=== PATIENT | female | born 1960 | race Caucasian/White ===

== ENCOUNTER 2016-12-26 09:49 | Inpatient (IN) | payer OTHER ==
--- NOTE | ~2016-12-26 | HP ---
History And Physical [address] [place]. [address] NAME: TESSIE PALOMINO : 64 STATUS : ADM Kate PAT#: [id number] AGE: 56 ADM/REG DATE : 12/26/16 MR#: [id number] REPORT SERV DATE: 12/26/16 DICTATED BY: MALACHI DUCKWORTH III DATE: 12/26/16 REPORT STATUS : Draft TRANSCRIBED BY: EDDIE DATE: 12/26/16 DATE OF ADMISSION: 12/26/2016 CHIEF COMPLAINT: Left knee pain. 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 She felt immediate pain and swelling and was brought to the emergency room here at [facility] where x-rays revealed a displaced comminuted left patellar fracture, and she is admitted for open reduction and internal fixation of her left patella fracture. Risks, benefits, and expected outcomes have been explained, including migration of hardware, persistent pain, and arthritis with loss of motion. PAST MEDICAL HISTORY: Negative for high blood pressure, diabetes, liver, lung, or kidney problems. ALLERGIES: CODEINE. MEDICATIONS: Please see the MAR. PHYSICAL EXAMINATION: GENERAL: She is alert and oriented x3. VITAL SIGNS: Stable. HEENT: Normocephalic, atraumatic. Pupils are equal, round, and reactive to light and accommodation. Extraocular muscles are intact. NECK: Supple. CHEST: Clear. HEART: Regular rate and rhythm. ABDOMEN: Benign, soft, nontender. Positive bowel sounds. ORTHOPEDIC: Examination reveals marked tenderness to the left knee. She has a large hemarthrosis of her left patella with palpable fragments superior and inferior. She has no opening with varus or valgus stress. Limited range of motion secondary to pain and guarding. IMAGING: X-rays reveal a comminuted transverse left patella fracture displaced. PLAN: Admission for open reduction and internal fixation of her left patella fracture. TB/EDDIE Malachi Duckworth III, M.D. / [id number] [facility] [address] [address] NAME: TESSIE PALMOINO : 64 STATUS : ADM Kate PAT#: [id number] AGE: 56 ADM/REG DATE : 12/26/16 MR#: [id number] REPORT SERV DATE: 12/26/16 DICTATED BY: MALACHI DUCKWORTH III DATE: 12/26/16 REPORT STATUS : Draft TRANSCRIBED BY: MODL DATE: 12/26/16 CC: Elfego Stern III, M.D.
--- NOTE | ~2016-12-26 | OP ---
Record Of Operation [facility] [address] [place]. [address] NAME: TESSIE PALOMINO : 64 STATUS : ADM Kate PAT#: [id number] AGE: 56 ADM/REG DATE : 12/26/16 MR#: [id number] REPORT SERV DATE: 12/26/16 DICTATED BY: MALACHI DUCKWORTH III DATE: 12/26/16 REPORT STATUS : Draft TRANSCRIBED BY: MODL DATE: 12/26/16 DATE OF PROCEDURE: 12/26/2016 PREOPERATIVE DIAGNOSIS: A transverse left patella fracture, inferior third hole. POSTOPERATIVE DIAGNOSIS: A transverse left patella fracture, inferior third hole. SURGICAL PROCEDURE PERFORMED: 1. Open reduction and internal fixation of left patella fracture with [id number] K- wire fixation. 2. Repair of medial and lateral retinaculum, left knee. SURGEON: Malachi Duckworth M.D. FIRST ASSISTANCE: Tamia Drummond NP. ANESTHESIA: General. ANTIBIOTICS: Ancef 2 g. COMPLICATIONS: None. TOURNIQUET TIME: 39 minutes. CRYSTALLOID: 1000 mL. ESTIMATED BLOOD LOSS: 20 mL. DRAINS: None. PROCEDURE IN DETAIL: The patient was brought to the operative room, placed on the table in supine position and general anesthesia was induced. A 2 g Ancef was administered intravenously in the preop holding area. In the operating room, pneumatic tourniquet was applied to the left upper thigh. Left lower extremity was prepped and draped in the usual sterile fashion. It was exsanguinated with a 6-inch Esmarch. Tourniquet was inflated to 350 mmHg. Assuring good anesthesia, a standard midline incision was made directly over the left knee from the inferior pole of the patella to the superior pole. Abundant blood was encountered. The fractured patella was encountered. A hemarthrosis was drained from the knee joint. The medial and lateral retinaculum were torn. The inferior pole had two small fragments, one mostly articular cartilage on the lateral side and one small osteochondral fragment on the medial side. All soft tissue was removed from the fracture site. The fracture site was reduced with large retinaculum. Two 2.0 K-wires were placed across the fracture from the superior pole to the inferior pole, exiting the patella tendon. An 18- gauge gyhhvm-qs-gusob wire was then wrapped around the K-wires and tightened on the superior medial side. The excess wire was cut. The ends of the pins were bent downward away from the skin and cut with a pin cutter. The articular surface appeared anatomic while palpating Record Of Operation [facility] [address] [place]. [address] NAME: TESSIE PALOMINO : 64 STATUS : ADM Kate PAT#: [id number] AGE: 56 ADM/REG DATE : 12/26/16 MR#: [id number] REPORT SERV DATE: 12/26/16 DICTATED BY: MALACHI DUCKWORTH III DATE: 12/26/16 REPORT STATUS : Draft TRANSCRIBED BY: MODL DATE: 12/26/16 it through the torn medial retinaculum. C-arm image was used to confirm nice alignment at the fracture. The medial retinaculum was repaired with interrupted [id number] #1 Vicryl suture. The lateral retinaculum was repaired in a similar fashion with #1 interrupted Vicryl suture. The thorough irrigation was carried out and subcutaneous tissue was closed with 2-0 Vicryl. A 20 mL of 0.5% Marcaine solution was injected into the knee for postoperative pain control. The skin was closed with a running 4-0 Monocryl. Benzoin and Steri-Strips were applied, followed by an Aquacel dressing. Tourniquet was released after 39 minutes. The patient tolerated the procedure well, brought to recovery room in satisfactory condition. There were no intraoperative, postoperative, or anesthetic complications. All instrument, needle, sponge, and lap counts were correct. ESTHER/EDDIE Malachi Duckworth III, M.D. / [id number] CC: Elfego Stern III, M.D.
[2016-12-26] MEDS ORDERED: PRIN5 PO (11:06)
[2016-12-26] MEDS ORDERED: PROAIR HFA INH (11:06)
[2016-12-26] MEDS ORDERED: LEXAPRO20 PO (11:06)
[2016-12-26] MEDS ORDERED: TESS PO (11:06)
[2016-12-26] MEDS ORDERED: ADVIL PO (11:07)
[2016-12-26] MEDS ORDERED: PROMETRIUM PO (11:07)
[2016-12-26] MEDS ORDERED: ESTRACE0.5 MG PO (11:07)
[2016-12-27 05:21] LABS: HEMOGLOBIN 11.6 g/dL (12.0-16.0)
[2016-12-27 05:24] LABS: HEMATOCRIT 35.7 % (36.0-48.0)
[2016-12-27] MEDS ORDERED: PERCOCET 10/3251 TAB (13:29)
== END 2016-12-27 15:53 | disposition home or self-care (01) | DRG 502 ==
LOC: ER 09:49 → 3SO 10:49
PROVIDERS: Orthopaedic Surgery
PROC: 0KQT0ZZ Repair Left Lower Leg Muscle, Open Approach (ICD-10-PCS; 2016-12-26)
PROC: 0QSF04Z Reposition Left Patella with Internal Fixation Device, Open Approach (ICD-10-PCS; principal; 2016-12-26 12:45)
DX: S82.032A Displaced transverse fracture of left patella, initial encounter for closed fracture (principal)
CPT/HCPCS: 73560-LT; 73562-LT; 85014; 85018; 96374; 97162-GP; 97166-GO; 99284; A9270-GY; G8987-CJ-GO; G8988-CJ-GO; G8989-CJ-GO; J0690; J1170; J1885; J2250; J2270; J2405; J2710; J3010